=== PATIENT | female | born 1940 | race Caucasian/White ===

== ENCOUNTER 2022-07-05 15:00 | Emergency (ER) | payer OTHER ==
[~2022-07-05] VITALS: Ht 165.1 cm; Wt 66.7 kg
[~2022-07-05 15:00] MED LIST: VASOTEC5 MG PO
[2022-07-05] MEDS ORDERED: ROSUVASTATIN-E1 EACH (16:58)
[2022-07-05] MEDS ORDERED: [UNRECOGNIZED DRUG - OTHER] (16:59)
[2022-07-05] MEDS ORDERED: [UNRECOGNIZED DRUG - OTHER] (16:59)
[2022-07-05] MEDS ORDERED: HYDROCORTISONE15 G3 TOP (18:54)
== END 2022-07-05 19:10 | disposition home or self-care (01) ==
LOC: ER 15:00
DX: L30.9 Dermatitis, unspecified (principal); R32 Unspecified urinary incontinence